=== PATIENT | male | born 1930 | race Caucasian/White ===

== ENCOUNTER → 2017-04-25 | Emergency (ER) | payer OTHER, BC ==
[~2017-04-25] MED LIST: MECLIZINE HCL 25 MG TABLET (FP) ONE; MECLIZINE HCL 25 MG TABLET (FP) PO ONE; ONDANSETRON 4 MG/2 ML VIAL IVPUSH ONE; ONDANSETRON 4 MG/2 ML VIAL ONE; SODIUM CHLORIDE 500 ML IV STA
[2017-04-25 16:52] VITALS: BMI 32.1
--- NOTE | 2017-04-25 17:27 | PDOC ---
History of Present Illness - General Chief Complaint: Lightheaded Stated Complaint: Nausea/Vomiting Time Seen by Provider: 04/25/17 16:50 History Source: Patient Exam Limitations: No Limitations - History of Present Illness Initial Comments: 04/25/17 17:05 86-year-old male presents the ED with complaints of dizziness and nausea that came on suddenly at 9 AM while he was standing up urinating. Patient states that sit down since she felt as if he was going to fall. Patient denies chest pain, shortness of breath, visual changes, headache, or weakness at the time. Patient states similar symptoms happened 2 days ago he was standing outside talking to a neighbor but resolved within seconds. Patient denies history of recent ear infection, recent dental work, history of vertigo, associated symptoms such as chest pain, shortness breath, lower extremity edema, recent change in medications, recent change in diet/weight. Timing/Duration: other (this morning) Severity: moderate Associated Symptoms: reports: nausea/vomiting, other (dizziness) Past History - Travel Traveled outside of the country in the last 30 days: No Close contact w/someone who was outside of country & ill: No - Past Medical History Allergies/Adverse Reactions: Allergies Allergy/AdvReac Type Severity Reaction Status Date / Time No Known Allergies Allergy Verified 04/25/17 16:49 Home Medications: Ambulatory Orders Citalopram Hydrobromide [Celexa -] 20 mg PO DAILY 05/15/14 Docusate Sodium [Colace -] 100 mg PO DAILY 05/15/14 Pantoprazole Sodium [Protonix -] 40 mg PO DAILY #30 tablet.ec 12/31/14 Aspirin [Aspirin EC] 81 mg PO DAILY #30 tablet. 11/06/16 Atorvastatin Ca [Lipitor] 20 mg PO HS #30 tablet 11/06/16 Losartan Potassium [Cozaar -] 50 mg PO BID #60 tablet 11/06/16 Meclizine HCl [Antivert -] 25 mg PO TID #10 tablet 04/25/17 Metoprolol Succinate [Toprol Xl -] 25 mg PO DAILY 04/25/17 Cancer: Yes (bladder, colon) Cardiac Disorders: Yes HTN: Yes Hypercholesterolemia: Yes - Surgical History Abdominal Surgery: (hernia) Appendectomy: Yes Cardiac Surgery: Yes (stents x3 May 2014) - Immunization History Immunization Up to Date: Yes - Psycho/Social/Smoking Cessation Hx Anxiety: No Suicidal Ideation: No Smoking History: Former smoker Have you smoked in the past 12 months: No Number of Cigarettes Smoked Daily: 0 If you are a former smoker, when did you quit?: 1957 Information on smoking cessation initiated: No Hx Alcohol Use: No Drug/Substance Use Hx: No Substance Use Type: None Hx Substance Use Treatment: No Patient Lives Alone: No Review of Systems - Review of Systems Able to Perform ROS?: Yes Constitutional: No: Symptoms Reported HEENTM: No: Symptoms Reported Respiratory: No: Symptoms reported Cardiac (ROS): Yes: Lightheadedness ABD/GI: Yes: Nausea Musculoskeletal: No: Symptoms Reported Integumentary: No: Symptoms Reported Neurological: Yes: Dizziness Endocrine: No: Symptoms Reported Hematologic/Lymphatic: No: Symptoms Reported *Physical Exam - Vital Signs Last Vital Signs Temp Pulse Resp BP Pulse Ox 98.3 F 57 L 20 150/58 100 04/25/17 16:50 04/25/17 16:50 04/25/17 16:50 04/25/17 16:50 04/25/17 16:50 - Physical Exam General Appearance: Yes: Nourished, Appropriately Dressed. No: Apparent Distress HEENT: positive: EOMI, YI. negative: Pale Conjunctivae Neck: positive: Supple Respiratory/Chest: positive: Lungs Clear, Normal Breath Sounds. negative: Respiratory Distress, Accessory Muscle Use Cardiovascular: positive: Regular Rhythm, Regular Rate. negative: Murmur Gastrointestinal/Abdominal: positive: Normal Bowel Sounds, Soft. negative: Distended, Tenderness Musculoskeletal: negative: CVA Tenderness Extremity: positive: Normal Capillary Refill. negative: Pedal Edema Integumentary: positive: Normal Color, Warm, Moist Neurologic: positive: Motor Strength 5/5 (ambulatory) Heart Score/ECG Review - History History: Slightly suspicious - Electrocardiogram EKG: Normal - Age Age: >/= 65 - Risk Factors Risk Factors Heart Score: Yes Hx Hypertension, Yes Positive family hx of cardiac disease - Troponin Troponin: </= normal limit - ECG Intrepretation Rhythm: Regular Rhythm (sinus patrizia. no acute findings) ED Treatment Course - LABORATORY CBC & Chemistry Diagram: 04/25/17 17:20 04/25/17 17:20 - RADIOLOGY Radiology Studies Ordered: Category Date Time Status HEAD CT WITHOUT CONTRAST [CT] Stat CT Scan 04/25/17 17:17 Ordered CHEST X-RAY PORTABLE* [RAD] Stat Radiology 04/25/17 17:17 Ordered Medical Decision Making - Medical Decision Making 04/25/17 17:32 Pt with c/o dizziness and nausea since 9am after standing up while urinating. Pt on exam was s/o dizziness when sittting up stating the room was spinning. Pt was hallpike -. Pt ordered for labs, urine, cxr, ekg, head ct, ivf, and meclizine. 04/25/17 18:59 04/25/17 18:59 Laboratory Tests 04/25/17 04/25/17 17:20 17:20 WBC 8.1 Hgb 11.5 L D Hct 36.4 D Plt Count 261 Neutrophils % 80.1 Sodium 141 Potassium 4.7 Chloride 106 Carbon Dioxide 25 Anion Gap 10 BUN 21 H Creatinine 1.0 Creat Clearance w eGFR > 60 Random Glucose 122 H D Calcium 9.2 Total Bilirubin 0.9 D AST 10 L D ALT 13 Troponin I < 0.02 CXR -. Head CT -. Pt states feeling better. UA pending. If -. Discharge home with meclizine and neuro f/u. *DC/Admit/Observation/Transfer Diagnosis at time of Disposition: Vertigo - Discharge Dispostion Disposition: HOME - Prescriptions Prescriptions: Meclizine HCl [Antivert -] 25 mg PO TID #10 tablet - Referrals Referrals: Obed Barton MD [Primary Care Provider] - - Patient Instructions Printed Discharge Instructions: DI for Vertigo Additional Instructions: drink plenty of fluids. take meclizine as prescribed. follow up with your doctor as soon as possible. return to the ER if symptoms worsen.
[2017-04-25 17:37] LABS: BASOPHIL 0.8 % (0-2.0); MCH 25.1 pg (25.7-33.7); MCHC 31.5 g/dl (32.0-35.9); MEAN CELL VOLUME 79.7 fl (80-96); MEAN PLT VOLUME 7.8 fl (7.5-11.1); NEUTROPHILS 80.1 % (42.8-82.8); PLATELET COUNT 261 K/MM3 (134-434); RDW 27.9 % (11.9-15.9); WHITE BLOOD COUNT 8.1 K/mm3 (4.0-10.0)
[2017-04-25 18:08] LABS: ALBUMIN 3.5 g/dl (3.4-5.0); ANION GAP 10 (8-16); BILIRUBIN,TOTAL 0.9 mg/dL (0.2-1.0); CALCIUM 9.2 mg/dL (8.5-10.1); CO2 25 mmol/L (21-32); COCKROFT - GAULT 68.44; GLUCOSE,RANDOM 122 mg/dL (74-106); SGOT/AST 10 U/L (15-37); SGPT/ALT 13 U/L (12-78); TOT PROT 6.5 g/dl (6.4-8.2)
[2017-04-25 18:11] LABS: ALK PHOS 80 U/L (45-117); TROPONIN I < 0.02 ng/ml (0.00-0.05)
[2017-04-25 19:07] LABS: URINE APPEARANCE CLEAR; URINE BILIRUBIN NEGATIVE (NEGATIVE); URINE BLOOD NEGATIVE (NEGATIVE); URINE COLOR LTYELLOW; URINE GLUCOSE (UA) NEGATIVE (NEGATIVE); URINE KETONE TRACE (NEGATIVE); URINE LEUK ESTERASE NEGATIVE (NEGATIVE); URINE NITRITE NEGATIVE (NEGATIVE); URINE PROTEIN NEGATIVE (NEGATIVE); URINE UROBILINOGEN NEGATIVE E.U./dl (0.2-1.0)
--- NOTE | 2017-04-25 19:28 | PDOC ---
*Physical Exam - Vital Signs Last Vital Signs Temp Pulse Resp BP Pulse Ox 98.3 F 57 L 20 150/58 100 04/25/17 16:50 04/25/17 16:50 04/25/17 16:50 04/25/17 16:50 04/25/17 16:50 ED Treatment Course - LABORATORY CBC & Chemistry Diagram: 04/25/17 17:20 04/25/17 17:20 - ADDITIONAL ORDERS Additional order review: Laboratory Results 04/25/17 04/25/17 17:38 17:20 Sodium 141 Potassium 4.7 Chloride 106 Carbon Dioxide 25 Anion Gap 10 BUN 21 H Creatinine 1.0 Creat Clearance w eGFR > 60 Random Glucose 122 H D Calcium 9.2 Magnesium 2.0 Total Bilirubin 0.9 D AST 10 L D ALT 13 Alkaline Phosphatase 80 Creatine Kinase 31 L Troponin I < 0.02 Total Protein 6.5 Albumin 3.5 D Urine Color Ltyellow Urine Appearance Clear Urine pH 7.0 Urine Protein Negative Urine Glucose (UA) Negative Urine Ketones Trace H Urine Blood Negative Urine Nitrite Negative Urine Bilirubin Negative Urine Urobilinogen Negative Ur Leukocyte Esterase Negative 04/25/17 17:20 RBC 4.57 D MCV 79.7 L MCHC 31.5 L RDW 27.9 H MPV 7.8 Neutrophils % 80.1 Lymphocytes % 11.6 D Monocytes % 5.5 Eosinophils % 2.0 Basophils % 0.8 - Medications Given in the ED: ED Medications Discontinued Medications Generic Name Dose Route Start Last Admin Trade Name Freq PRN Reason Stop Dose Admin Sodium Chloride 500 mls @ 500 mls/hr 04/25/17 17:17 04/25/17 17:27 Normal Saline - IV 04/25/17 18:16 500 mls/hr ASDIR STA Administration Meclizine HCl 25 mg 04/25/17 17:17 04/25/17 17:27 Antivert - PO 04/25/17 17:18 25 mg ONCE ONE Administration Ondansetron HCl 4 mg 04/25/17 17:27 04/25/17 17:34 Zofran Injection IVPUSH 04/25/17 17:28 4 mg ONCE ONE Administration Medical Decision Making - Medical Decision Making 04/25/17 20:01 v/s stable. patient reports feeling better. all [id number] reviewed with paTIENT and family,. patient is to follow up with Dr. barton As soon as possible. *DC/Admit/Observation/Transfer Diagnosis at time of Disposition: Vertigo - Discharge Dispostion Disposition: HOME - Prescriptions Prescriptions: Meclizine HCl [Antivert -] 25 mg PO TID #10 tablet - Referrals Referrals: Obed Barton MD [Primary Care Provider] - - Patient Instructions Printed Discharge Instructions: DI for Vertigo Additional Instructions: drink plenty of fluids. take meclizine as prescribed. follow up with your doctor as soon as possible. return to the ER if symptoms worsen.
[2017-04-25 19:52] VITALS: BP 148/64; PULSE 69; TEMP 97.8
--- NOTE | 2017-04-26 09:21 | EKG ---
Test Reason : Blood Pressure : / mmHG Vent. Rate : 058 BPM Atrial Rate : 058 BPM P-R Int : 196 ms QRS Dur : 096 ms QT Int : 466 ms P-R-T Axes : 066 038 027 degrees QTc Int : 457 ms SINUS BRADYCARDIA WHEN COMPARED WITH ECG OF 02-NOV-2016 11:01, NO SIGNIFICANT CHANGE WAS FOUND Confirmed by DARRYL HUA MD ([id number]) on 04/26/2017 9:21:13 AM Referred By: Confirmed By:DARRYL HUA MD
== END | disposition home or self-care (01) ==
LOC: JER 16:43
PROC: 3E0337Z Introduction of Electrolytic and Water Balance Substance into Peripheral Vein, Percutaneous Approach (ICD-10-PCS; principal; 2017-04-25)
DX: R42 Dizziness and giddiness (principal); I10 Essential (primary) hypertension; Z87.891 Personal history of nicotine dependence; E78.5 Hyperlipidemia, unspecified; Z85.51 Personal history of malignant neoplasm of bladder
CPT/HCPCS: 36415; 70450-TC; 71010-TC; 80053; 81003; 82550; 83735; 84484; 85025; 93005; 93010; 99283-25

== ENCOUNTER 2017-12-20 11:32 | Emergency (ER) | payer OTHER, BC ==
[2017-12-20 12:05] VITALS: PULSE 68; BMI 32.1
[2017-12-20] MEDS ORDERED: ACETAMINOPHEN 325 MG TABLET (FP) ONE (12:53)
[2017-12-20] MEDS ORDERED: ACETAMINOPHEN 325 MG TABLET (FP) PO ONE (12:56)
--- NOTE | 2017-12-20 13:03 | PDOC ---
History of Present Illness - General History Source: Patient Exam Limitations: No Limitations - History of Present Illness Initial Comments: 12/20/17 14:57 Patient is a 87 year old male with a significant past medical history of CAD (s/ p 5 years ago stent on dual AC), HTN, Hyperlipidemia, colon cancer, and Bladder Cancer, who presents to the ED with complaints of cold like symptoms that began 2 weeks ago. Patient reports experiencing productive cough with yellow coloration as well as generalized weakness. He reports experiencing runny nose, decreased appetite as well as joint pain. Denies chest pain, sob. Denies nausea, vomiting. Denies diarrhea, constipation. Denies contact with sick individuals, out of state travelling. Allergies: None Social history: Lives with . Former smoker ( last 1957). Former drinker. No illicit drugs. Surgical history: Appendectomy, Hernia Repair PMD: Dr. Mares <Michael Wu - Last Filed: 12/20/17 14:57> <Kavya Collazo - Last Filed: 12/20/17 15:09> - General Chief Complaint: Cold Symptoms Stated Complaint: UPPER RESPIRATORY INFECTION Time Seen by Provider: 12/20/17 13:03 Past History <Michael Wu - Last Filed: 12/20/17 14:57> - Past Medical History Cancer: Yes (bladder, colon) Cardiac Disorders: Yes COPD: No HTN: Yes Hypercholesterolemia: Yes - Surgical History Abdominal Surgery: Yes (hernia) Appendectomy: Yes Cardiac Surgery: Yes (stents x3 May 2014) - Immunization History Immunization Up to Date: Yes - Suicide/Smoking/Psychosocial Hx Smoking History: Former smoker Have you smoked in the past 12 months: No Number of Cigarettes Smoked Daily: 0 If you are a former smoker, when did you quit?: 1957 Information on smoking cessation initiated: No Hx Alcohol Use: No Drug/Substance Use Hx: No Substance Use Type: None Hx Substance Use Treatment: No <Kavya Collazo - Last Filed: 12/20/17 15:09> - Past Medical History Allergies/Adverse Reactions: Allergies Allergy/AdvReac Type Severity Reaction Status Date / Time No Known Allergies Allergy Verified 04/25/17 16:49 Home Medications: Ambulatory Orders Citalopram Hydrobromide [Celexa -] 20 mg PO DAILY 05/15/14 Aspirin [Aspirin EC] 81 mg PO DAILY #30 tablet. 11/06/16 Atorvastatin Ca [Lipitor] 20 mg PO HS #30 tablet 11/06/16 Losartan Potassium [Cozaar -] 50 mg PO BID #60 tablet 11/06/16 Metoprolol Succinate [Toprol Xl -] 25 mg PO DAILY 04/25/17 Amlodipine Besylate [Norvasc -] 5 mg PO DAILY 12/20/17 Ascorbic Acid [Vitamin C] 500 mg PO DAILY 12/20/17 Bisacodyl [Dulcolax] 5 mg PO BID 12/20/17 Levofloxacin [Levaquin] 750 mg PO DAILY #10 tab 12/20/17 Review of Systems - Review of Systems Able to Perform ROS?: Yes Comments:: 12/20/17 14:57 GENERAL/CONSTITUTIONAL: +Generalized weakness. No fever or chills. HEAD, EYES, EARS, NOSE AND THROAT: +Runny nose. No change in vision. No ear pain or discharge. No sore throat. CARDIOVASCULAR: No chest pain or shortness of breath. RESPIRATORY: +Productive cough No wheezing, or hemoptysis. GASTROINTESTINAL: No nausea, vomiting, diarrhea or constipation. GENITOURINARY: No dysuria, frequency, or change in urination. MUSCULOSKELETAL: +Joint pain. No joint or muscle swelling. No neck or back pain. SKIN: No rash NEUROLOGIC: No headache, vertigo, loss of consciousness, or change in strength/ sensation. ENDOCRINE: +Decreased appetite. No increased thirst. No abnormal weight change. HEMATOLOGIC/LYMPHATIC: No anemia, easy bleeding, or history of blood clots. ALLERGIC/IMMUNOLOGIC: No hives or skin allergy. All Other Systems: Reviewed and Negative <Michael Wu - Last Filed: 12/20/17 14:57> *Physical Exam - Vital Signs Last Vital Signs Temp Pulse Resp BP Pulse Ox 100.8 F H 68 23 151/71 95 12/20/17 12:01 12/20/17 12:01 12/20/17 12:01 12/20/17 12:01 12/20/17 12:01 - Physical Exam Comments: 12/20/17 14:57 GENERAL: Awake, alert, and fully oriented, in no acute distress HEAD: No signs of trauma EYES: PERRLA, EOMI, sclera anicteric, conjunctiva clear ENT: Auricles normal inspection, hearing grossly normal, nares patent, oropharynx clear without exudates. Moist mucosa NECK: Normal ROM, supple, no lymphadenopathy, JVD, or masses LUNGS: Breath sounds equal, clear to auscultation bilaterally. No wheezes, and no crackles HEART: Regular rate and rhythm, normal S1 and S2, no murmurs, rubs or gallops ABDOMEN: Soft, nontender, normoactive bowel sounds. No guarding, no rebound. No masses EXTREMITIES: Normal range of motion, no edema. No clubbing or cyanosis. No cords, erythema, or tenderness NEUROLOGICAL: Cranial nerves II through XII grossly intact. Normal speech, normal gait SKIN: Warm, Dry, normal turgor, no rashes or lesions noted. <Michael Wu - Last Filed: 12/20/17 14:57> - Vital Signs Last Vital Signs Temp Pulse Resp BP Pulse Ox 100.8 F H 68 23 151/71 95 12/20/17 12:01 12/20/17 12:01 12/20/17 12:01 12/20/17 12:01 12/20/17 12:01 <Kavya Collazo - Last Filed: 12/20/17 15:09> ED Treatment Course - LABORATORY CBC & Chemistry Diagram: 12/20/17 13:19 12/20/17 13:43 - ADDITIONAL ORDERS Additional order review: Laboratory Results 12/20/17 12/20/17 12/20/17 13:43 13:43 13:43 Sodium 139 Potassium 4.3 Chloride 104 Carbon Dioxide 27 Anion Gap 8 BUN 14 D Creatinine 0.9 Creat Clearance w eGFR > 60 Random Glucose 96 D Lactic Acid 1.5 Calcium 8.4 L Total Bilirubin 0.6 D AST 10 L ALT 13 Alkaline Phosphatase 77 Creatine Kinase 39 Troponin I < 0.02 Total Protein 6.9 Albumin 3.2 L Urine Color Yellow Urine Appearance Clear Urine pH 5.0 D Ur Specific [place] 1.020 Urine Protein 1+ H Urine Glucose (UA) Negative Urine Ketones Negative Urine Blood Negative Urine Nitrite Negative Urine Bilirubin Negative Urine Urobilinogen 4.0 e.u/dl Ur Leukocyte Esterase Negative Urine WBC (Auto) 2 Urine RBC (Auto) 21 Ur Epithelial Cells Rare Urine Mucus Rare 12/20/17 12:40 Influenza Types A,B Antigen (ABDULAZIZ) - Final Nasopharyngeal Aspirate - Final 12/20/17 13:19 RBC 4.63 MCV 82.7 MCHC 32.2 RDW 14.2 D MPV 7.3 L Neutrophils % 84.8 H Lymphocytes % 6.2 L D Monocytes % 7.6 Eosinophils % 1.0 Basophils % 0.4 - Medications Given in the ED: ED Medications Discontinued Medications Generic Name Dose Route Start Last Admin Trade Name Freq PRN Reason Stop Dose Admin Acetaminophen 650 mg 12/20/17 12:56 12/20/17 12:56 Tylenol - PO 12/20/17 12:57 650 mg NOW ONE Administration <Michael Wu - Last Filed: 12/20/17 14:57> - LABORATORY CBC & Chemistry Diagram: 12/20/17 13:19 12/20/17 13:43 - Medications Given in the ED: ED Medications Discontinued Medications Generic Name Dose Route Start Last Admin Trade Name Freq PRN Reason Stop Dose Admin Acetaminophen 650 mg 12/20/17 12:56 12/20/17 12:56 Tylenol - PO 12/20/17 12:57 650 mg NOW ONE Administration <Kavya Collazo - Last Filed: 12/20/17 15:09> Medical Decision Making - Medical Decision Making 12/20/17 15:03 Patient presents to the ED complaining of generalized malaise, productive cough and shortness of breath for 14 days. Patient denies fever at home, but has low grade fever in the ED. Initial concern for sepsis, but patient has normal vitals except for the fever, and lactate is normal. Case discussed with Dr. Garcia--patient is a reasonable candidate to send home with PO antibiotics. Will give Iv antibiotics x 1 dose, rx for levaquin. I have explained to the patient and his son that he may become sicker at home and that they should return immediately to the ED for worsening symptoms and that they must call Dr. Mares on Saturday for follow up. <Kavya Collazo - Last Filed: 12/20/17 15:09> *DC/Admit/Observation/Transfer - Attestations Scribe Attestion: 12/20/17 14:57 Documentation prepared by Michael Wu, acting as medical photographer for Kavya Collazo MD, MD/DO. <Michael Wu - Last Filed: 12/20/17 14:57> - Discharge Dispostion Admit: No <Kavya Collazo - Last Filed: 12/20/17 15:09> Diagnosis at time of Disposition: Pneumonia Qualifiers: Pneumonia type: due to unspecified organism Laterality: unspecified laterality Lung location: unspecified part of lung Qualified Code(s): J18.9 - Pneumonia, unspecified organism - Discharge Dispostion Disposition: HOME Condition at time of disposition: Good - Prescriptions Prescriptions: Levofloxacin [Levaquin] 750 mg PO DAILY #10 tab - Referrals Referrals: Obed Mares MD [Primary Care Provider] - - Patient Instructions Printed Discharge Instructions: DI for Pneumonia -- Adult Additional Instructions: return immediately to the ED for new or worsening symptoms, especially fever, severe shortness of breath or chest pain, confusion, severe nausea or vomiting. Make sure that you take the antibiotics and that you follow up with Dr. Mares on Saturday. - Post Discharge Activity
[2017-12-20 13:49] LABS: BASO % 0.4 % (0-2.0); HEMATOCRIT 38.3 % (35.4-49); HEMOGLOBIN 12.3 GM/dL (11.7-16.9); LYMPH % 6.2 % (8-40); MCH 26.7 pg (25.7-33.7); MCHC 32.2 g/dl (32.0-35.9); MEAN CELL VOLUME 82.7 fl (80-96); MEAN PLT VOLUME 7.3 fl (7.5-11.1); MONO % 7.6 % (3.8-10.2); NEUT % 84.8 % (42.8-82.8); PLATELET COUNT 309 K/MM3 (134-434); RBC 4.63 M/mm3 (4.00-5.60); RDW 14.2 % (11.9-15.9); WHITE BLOOD COUNT 12.1 K/mm3 (4.0-10.0)
[2017-12-20 14:08] LABS: URINE APPEARANCE CLEAR; URINE BILIRUBIN NEGATIVE (NEGATIVE); URINE BLOOD NEGATIVE (NEGATIVE); URINE COLOR YELLOW; URINE GLUCOSE (UA) NEGATIVE (NEGATIVE); URINE KETONE NEGATIVE (NEGATIVE); URINE LEUK ESTERASE NEGATIVE (NEGATIVE); URINE NITRITE NEGATIVE (NEGATIVE); URINE PROTEIN 1+ (NEGATIVE); URINE UROBILINOGEN 4.0 E.U/dl mg/dL (0.2-1.0)
[2017-12-20 14:14] LABS: EPI CELLS RARE /HPF (FEW); URINE MUCUS RARE
[2017-12-20 14:27] LABS: ALBUMIN 3.2 g/dl (3.4-5.0); ANION GAP 8 (8-16); BILIRUBIN,TOTAL 0.6 mg/dL (0.2-1.0); BLOOD UREA NITROGEN 14 mg/dL (7-18); CALCIUM 8.4 mg/dL (8.5-10.1); CHLORIDE 104 mmol/L (98-107); CO2 27 mmol/L (21-32); CREATININE 0.9 mg/dL (0.7-1.3); GLUCOSE,RANDOM 96 mg/dL (74-106); POTASSIUM 4.3 mmol/L (3.5-5.1); SGOT/AST 10 U/L (15-37); SGPT/ALT 13 U/L (12-78); SODIUM 139 mmol/L (136-145); TOT PROT 6.9 g/dl (6.4-8.2)
[2017-12-20 14:30] LABS: ALK PHOS 77 U/L (45-117)
[2017-12-20] MEDS ORDERED: AZITHROMYCIN IVPB 500 MG in DEXTROSE 5%-WATER - 250 ML IVPB ONE (14:58)
[2017-12-20] MEDS ORDERED: CEFTRIAXONE 1 GM in DEXTROSE 5%-WATER - 100 ML IVPB ONE (14:58)
[2017-12-20 14:59] VITALS: BP 150/75; TEMP 98.6
[2017-12-20] MEDS ORDERED: CEFTRIAXONE 1 GM/50 ML BAG ONE (15:01)
[2017-12-20] MEDS ORDERED: AZITHROMYCIN IVPB 250 ML IVPB ONE (15:01)
--- NOTE | 2017-12-20 15:10 | EKG ---
Test Reason : Blood Pressure : / mmHG Vent. Rate : 063 BPM Atrial Rate : 063 BPM P-R Int : 182 ms QRS Dur : 094 ms QT Int : 426 ms P-R-T Axes : 050 015 011 degrees QTc Int : 435 ms NORMAL SINUS RHYTHM NORMAL ECG Confirmed by MD ROSIE, CHALINO ([id number]) on 12/20/2017 3:10:28 PM Referred By: Confirmed By:CHALINO VELEZ MD
== END 2017-12-20 16:34 | disposition home or self-care (01) ==
LOC: JER 11:32
DX: J18.9 Pneumonia, unspecified organism (principal); I25.10 Atherosclerotic heart disease of native coronary artery without angina pectoris; I10 Essential (primary) hypertension; Z95.5 Presence of coronary angioplasty implant and graft; Z87.891 Personal history of nicotine dependence; E78.00 Pure hypercholesterolemia, unspecified; Z85.038 Personal history of other malignant neoplasm of large intestine; Z85.51 Personal history of malignant neoplasm of bladder
CPT/HCPCS: 36415; 71046-TC; 80053; 81003; 81015; 82550; 83605; 84484; 85025; 87040; 87086; 87804; 93005; 93010; 96365; 96367; 99283-25